=== PATIENT | male | born 1955 | race Caucasian/White ===

== ENCOUNTER 2019-06-06 21:21 | Inpatient (IN) | payer MEDICAID ==
[~2019-06-06] VITALS: Ht 167.6 cm; Wt 74.8 kg
[2019-06-06] MEDS ORDERED: TETANUS, DIPHTHERIA, PERTUSSIS VAC/PF 0.5ML (>7YR OLD) IM ONE (22:45)
[2019-06-06] MEDS ORDERED: HYDROCODONE/ACETAMINOPHEN 10/325MG TABLET PO ONE (22:45)
[2019-06-06 23:24] LABS: BASOPHILS % 0.3 % (0.0-2.0); EOSINOPHILS % 0.7 % (0.0-5.0); HEMATOCRIT. 46.7 % (42.0-52.0); HEMOGLOBIN. 15.6 g/dL (14.0-18.0); LYMPHOCYTES % 8.3 % (20.0-50.0); MEAN CORPUSCULAR HEMOGLOBIN 29.1 pg (28.0-32.0); MEAN PLATELET VOLUME 7.3 fl (7.4-10.4); MONOCYTES % 5.8 % (2.0-8.0); NEUTROPHILS % 84.9 % (40.0-76.0); PLATELET 293 x1000/uL (130-400); RED BLOOD CELL COUNT 5.37 mill/uL (4.7-6.1); RED CELL DISTRIBUTION WIDTH 14.5 % (11.6-14.6)
[2019-06-06 23:26] LABS: CHLORIDE 106 mEq/L (98-107)
[2019-06-06 23:29] LABS: PARTIAL THROMBOPLASTIN TIME 28.2 sec (23.4-31.0); PROTHROMBIN TIME 10.1 sec (9.6-11.0)
[2019-06-07] VITALS (125 sets, daily range): BP systolic 108–152; BP diastolic 68–119
[2019-06-07] MEDS ORDERED: LEVETIRACETAM 500MG PREMIX 100 ML IV ONE (00:15)
[2019-06-07] MEDS ORDERED: NICARDIPINE 100 MG in SODIUM CHLORIDE 0.9% 60 ML IV PRN ×2 (00:30→00:45)
[2019-06-07] MEDS ORDERED: MORPHINE SULFATE 2 MG/ML CPJ (NOT FOR IM USE) IV PRN ×4 (04:30→04:45)
[2019-06-07] MEDS ORDERED: LEVETIRACETAM 500 MG in SODIUM CHLORIDE 0.9% 100 ML IV SCH (04:30)
[2019-06-07] MEDS ORDERED: DEXT 5%/LACTATED RINGERS 1,000 ML IV SCH ×2 (04:30→04:45)
[2019-06-07] MEDS ORDERED: IPRATROPIUM/ALBUTEROL 0.5-3(2.5)MG/3ML NEB HHN PRN (10:45)
[2019-06-07] MEDS: [UNRECOGNIZED DRUG - REMARK] IV SCH ×4 (13:16)
[2019-06-07] MEDS: NICOTINE 21MG PATCH TD SCH (13:16)
[2019-06-07 13:35] LABS: CLARITY URINE CLEAR (CLEAR); COLOR URINE YELLOW (YELLOW); KETONES URINE NEGATIVE (NEGATIVE); LEUKOCYTE ESTERASE URINE NEGATIVE (NEGATIVE); NITRITE URINE NEGATIVE (NEGATIVE); OCCULT BLOOD URINE NEGATIVE (NEGATIVE); PROTEIN URINE NEGATIVE (NEGATIVE); SPECIFIC GRAVITY URINE 1.015 (1.005-1.030); UROBILINOGEN URINE 0.2 E.U./dL (0.2-1.0)
[2019-06-07 13:50] LABS: *BARBITURATES SCREEN URINE NEGATIVE (NEGATIVE)
[2019-06-07 13:51] LABS: *AMPHETAMINES SCREEN URINE NEGATIVE (NEGATIVE); *BENZODIAZEPINES SCREEN URINE NEGATIVE (NEGATIVE); *COCAINE SCREEN URINE NEGATIVE (NEGATIVE); METHADONE URINE SCREEN NEGATIVE (NEGATIVE); OPIATES URINE SCREEN PRESUMTIVE POSITIVE (NEGATIVE); PHENCYCLIDINE URINE SCREEN NEGATIVE (NEGATIVE)
[2019-06-07 13:52] LABS: CANNABINOID URINE SCREEN NEGATIVE (NEGATIVE)
[2019-06-07] MEDS: PANTOPRAZOLE SODIUM 40 MG/VIAL IV SCH (20:49)
[2019-06-07] MEDS: LEVETIRACETAM 500 MG in SODIUM CHLORIDE 0.9% 100 ML IV SCH (23:57)
[2019-06-08] VITALS (29 sets, daily range): BP systolic 95–145; BP diastolic 68–99
[2019-06-08] MEDS: PANTOPRAZOLE SODIUM 40 MG/VIAL IV SCH (08:21)
[2019-06-08] MEDS: NICOTINE 21MG PATCH TD SCH (08:21)
[2019-06-08] MEDS: [UNRECOGNIZED DRUG - REMARK] IV SCH ×4 (08:23)
[2019-06-08 16:28] LABS: BASOPHILS % 0.6 % (0.0-2.0); EOSINOPHILS % 2.2 % (0.0-5.0); HEMATOCRIT. 42.8 % (42.0-52.0); HEMOGLOBIN. 14.5 g/dL (14.0-18.0); LYMPHOCYTES % 17.8 % (20.0-50.0); MEAN CORPUSCULAR HEMOGLOBIN 29.4 pg (28.0-32.0); MEAN CORPUSCULAR VOLUME 86.5 fL (80.0-94.0); MEAN PLATELET VOLUME 7.7 fl (7.4-10.4); MONOCYTES % 7.4 % (2.0-8.0); PLATELET 276 x1000/uL (130-400); RED BLOOD CELL COUNT 4.95 mill/uL (4.7-6.1); RED CELL DISTRIBUTION WIDTH 14.5 % (11.6-14.6)
[2019-06-08 16:40] LABS: CHLORIDE 106 mEq/L (98-107)
[2019-06-08] MEDS: FAMOTIDINE 20MG/2ML VIAL IV SCH (21:11)
[2019-06-09] VITALS: BP 129/84
[2019-06-09] MEDS: LEVETIRACETAM 500 MG in SODIUM CHLORIDE 0.9% 100 ML IV SCH (00:11)
[2019-06-09 04:00] VITALS: BP 115/77
[2019-06-09 06:49] LABS: BASOPHILS % 0.5 % (0.0-2.0); EOSINOPHILS % 3.5 % (0.0-5.0); HEMOGLOBIN. 14.3 g/dL (14.0-18.0); LYMPHOCYTES % 21.8 % (20.0-50.0); MEAN CORPUSCULAR HEMOGLOBIN 29.4 pg (28.0-32.0); MEAN CORPUSCULAR VOLUME 86.4 fL (80.0-94.0); MEAN PLATELET VOLUME 7.7 fl (7.4-10.4); MONOCYTES % 7.7 % (2.0-8.0); NEUTROPHILS % 66.5 % (40.0-76.0); PLATELET 274 x1000/uL (130-400); RED BLOOD CELL COUNT 4.86 mill/uL (4.7-6.1); RED CELL DISTRIBUTION WIDTH 14.5 % (11.6-14.6)
[2019-06-09 08:00] VITALS: BP 140/93
[2019-06-09 08:15] LABS: CHLORIDE 106 mEq/L (98-107)
[2019-06-09] MEDS: NICOTINE 21MG PATCH TD SCH (08:29)
[2019-06-09] MEDS: [UNRECOGNIZED DRUG - REMARK] IV SCH ×4 (08:30)
[2019-06-09] MEDS: FAMOTIDINE 20MG/2ML VIAL IV SCH (08:30)
[2019-06-09 10:49] VITALS: BP 140/93
== END 2019-06-09 13:11 | disposition home or self-care (01) | DRG 55 ==
LOC: ER 21:21 → MICUNO 06-07 00:56 → EDBEDREQ 06-07 00:57 → EDBEDREQTM 06-07 00:57 → ENRESERV 06-07 02:12 → 6EST 06-08 10:15
PROVIDERS: ADMIT Internal Medicine; ATTEND Internal Medicine
DX: S06.5X9A Traumatic subdural hemorrhage with loss of consciousness of unspecified duration, initial encounter (principal); D72.829 Elevated white blood cell count, unspecified; F17.210 Nicotine dependence, cigarettes, uncomplicated; I10 Essential (primary) hypertension; S01.511A Laceration without foreign body of lip, initial encounter; S02.2XXA Fracture of nasal bones, initial encounter for closed fracture; J34.2 Deviated nasal septum; Z82.49 Family history of ischemic heart disease and other diseases of the circulatory system; Z71.6 Tobacco abuse counseling; Y08.89XA Assault by other specified means, initial encounter; Y93.89 Activity, other specified; Y92.89 Other specified places as the place of occurrence of the external cause; Y99.8 Other external cause status
CPT/HCPCS: 36415; 70486; 71045; 80048; 80305; 82693; 84145; 86850; 86900; 90471; 90715; 93970; 96365; 97166; 99285; C9113; J1953; J3411; J3490; J7050; J7121

== ENCOUNTER 2023-11-30 11:57 | Emergency (ER) | payer MEDICAID, OTHER ==
[~2023-11-30] VITALS: Ht 157.5 cm; Wt 69.0 kg
[2023-11-30 12:08] VITALS: O2SAT 99
[2023-11-30] MEDS ORDERED: AMOX1TAB16 MT (13:33)
[2023-11-30 13:58] VITALS: BP 116/82; PULSE 73; RESP 18; TEMP 98.1
== END 2023-11-30 13:59 | disposition home or self-care (01) ==
LOC: ER 11:57
DX: K04.7 Periapical abscess without sinus (principal)
CPT/HCPCS: 99283